=== PATIENT | male | born 1935 | race Caucasian/White ===

== ENCOUNTER 2018-07-22 10:10 | Emergency (ER) | payer MEDICARE ==
[~2018-07-22] VITALS: Ht 177.8 cm; Wt 75.7 kg
[~2018-07-22 10:10] MED LIST: DIAZ10TA PO; SILO8CAP2 PO; TADA5TAB2 PO; VALS160T2 PO; ZOLP12.52 PO
[2018-07-22] MEDS ORDERED: ROSU5TAB PO (10:34)
[2018-07-22] MEDS ORDERED: MAGN400C PO (10:34)
[2018-07-22] MEDS ORDERED: AMLO2.5T4 PO (10:34)
[2018-07-22] MEDS ORDERED: CELE100C PO (10:37)
--- NOTE | 2018-07-22 10:40 | NUR ---
Dr Manning at the bedside for MSE.
[2018-07-22 10:58] LABS: BASOPHILS # (AUTO) 0.1 K/uL (0.0-8.0); BASOPHILS % (AUTO) 0.6 % (0.0-2.0); EOSINOPHILS # (AUTO) 0.1 K/uL (0.0-0.7); EOSINOPHILS % (AUTO) 1.1 % (0.0-7.0); HEMATOCRIT 44.7 % (36.7-47.1); HEMOGLOBIN 15.2 g/dL (12.5-16.3); LYMPHOCYTES # (AUTO) 0.9 K/uL (20.0-40.0); LYMPHOCYTES % (AUTO) 8.7 % (20.5-51.5); MEAN CORPUSCULAR HEMOGLOBIN 31.9 uug (23.8-33.4); MEAN CORPUSCULAR HGB CONC 34 g/dL (32.5-36.3); MEAN CORPUSCULAR VOLUME 93.9 fL (73.0-96.2); MONOCYTES % (AUTO) 9.7 % (0.0-11.0); NEUTROPHILS # (AUTO) 7.9 K/uL (1.8-8.9); NEUTROPHILS % (AUTO) 79.9 % (38.5-71.5); PLATELET COUNT (AUTO) 204 K/uL (152-348); RED BLOOD CELL COUNT(AUTO) 4.76 MIL/uL (4.06-5.63); WHITE BLOOD COUNT (AUTO) 9.9 K/uL (3.6-10.2)
[2018-07-22] MEDS ORDERED: predniSONE 10 MG TABLET ONE (10:59)
[2018-07-22] MEDS ORDERED: predniSONE 50 MG TABLET ONE ×2 (10:59→11:49)
[2018-07-22] MEDS ORDERED: predniSONE 10 MG TABLET PO ONE (11:00)
[2018-07-22] MEDS ORDERED: IPRATROPIUM BROMIDE 0.5 MG/2.5 ML NEBU NEB ONE (11:00)
[2018-07-22] MEDS ORDERED: ALBUTEROL SULFATE 2.5 MG/3 ML NEBU NEB ONE (11:00)
[2018-07-22] MEDS ORDERED: ALBUTEROL SULFATE 2.5 MG/3 ML NEBU ONE (11:03)
[2018-07-22] MEDS ORDERED: IPRATROPIUM BROMIDE 0.5 MG/2.5 ML NEBU ONE (11:03)
[2018-07-22 11:08] LABS: CARBON DIOXIDE 30 mmol/L (21-32); CHLORIDE 102 mmol/L (98-107); GLUCOSE 120 mg/dL (74-106); POTASSIUM 4.1 mmol/L (3.5-5.1); UREA NITROGEN, BLOOD 16 mg/dL (7-18)
[2018-07-22] MEDS ORDERED: IRBE150T28 PO (11:08)
[2018-07-22 11:27] LABS: ALANINE AMINOTRANSFERASE 22 U/L (16-63); ALKALINE PHOSPHATASE 54 U/L (50-136); ASPARTATE AMINOTRANSFERASE 19 U/L (15-37); BILIRUBIN,DIRECT 0.1 mg/dL (0.0-0.2); BILIRUBIN,TOTAL 0.5 mg/dL (0.2-1.0); TOTAL PROTEIN, SERUM 7.1 g/dL (6.4-8.2)
[2018-07-22] MEDS ORDERED: AZITHROMYCIN 250 MG TABLET PO ONE (11:45)
[2018-07-22] MEDS ORDERED: predniSONE 50 MG TABLET PO ONE (11:45)
[2018-07-22] MEDS ORDERED: AZITHROMYCIN 250 MG TABLET ONE (11:49)
--- NOTE | 2018-07-22 11:58 | NUR ---
PT VERBALIZED FEELING BETTER AFTER BREATHING TX - DISCHARGE INSTRUCTIONS GIVEN , PRESCRIPTION EXPLAINED .
[2018-07-22 12:00] VITALS: BP 140/89
--- NOTE | 2018-07-22 12:01 | NUR ---
Patient discharged to home in stable conditon. Written and verbal after care instructions given. Patient verbalizes understanding of instructions.
== END 2018-07-22 12:01 | disposition home or self-care (01) ==
LOC: ER 10:10
DX: J18.9 Pneumonia, unspecified organism (principal); I10 Essential (primary) hypertension; E78.5 Hyperlipidemia, unspecified; Z88.8 Allergy status to other drugs, medicaments and biological substances; Z79.899 Other long term (current) drug therapy
CPT/HCPCS: 36415; 71045; 80048; 80076; 83880; 84484; 85025; 93005; 94640; 99284; J7512 ×2; 70030-TC; A4663; J3590; Q0144

== ENCOUNTER 2018-07-26 07:23 | Emergency (ER) | payer MEDICARE ==
[~2018-07-26] VITALS: Ht 177.8 cm; Wt 76.2 kg
[~2018-07-26 07:23] MED LIST changes: +AMLO2.5T4 PO; +CELE100C PO; +IRBE150T28 PO; +MAGN400C PO; +ROSU5TAB PO; -SILO8CAP2 PO; -VALS160T2 PO
--- NOTE | 2018-07-26 08:07 | NUR ---
Patient discharged to home in stable conditon. Written and verbal after care instructions given. Patient verbalizes understanding of instructions.
== END 2018-07-26 08:00 | disposition home or self-care (01) ==
LOC: ER 07:23
DX: J40 Bronchitis, not specified as acute or chronic (principal); I10 Essential (primary) hypertension; E78.5 Hyperlipidemia, unspecified; Z88.8 Allergy status to other drugs, medicaments and biological substances; Z79.899 Other long term (current) drug therapy
CPT/HCPCS: A4663

== ENCOUNTER 2019-07-24 08:11 | Emergency (ER) | payer MEDICARE ==
[~2019-07-24] VITALS: Ht 177.8 cm; Wt 76.2 kg
--- NOTE | 2019-07-24 08:23 | NUR ---
PT AMBULATORY W/ STABLE GAIT STATES MECHANICAL TRIP AND FALL, FORWARD AND SCRAPED R KNEE NOTED GAUZE 4X4 R KNEE WRAPPED IN COBAIN AOX3, AIRWAY CLEAR DENIES FEVERS/CHILLS/NVD DENIES SOB DENIES LOC RA ABLE TO DO ROM MONITORED ACCORDINGLY
[2019-07-24] MEDS ORDERED: NEOMY/BACITRA/POLYMYXIN B OINT UD PACKET TP ONE ×2 (08:38→08:45)
[2019-07-24] MEDS ORDERED: TDAP DIPH,PERTUSS,TET VAC/PF 0.5 ML DISP.SYRIN IM ONE ×2 (08:39→08:45)
--- NOTE | 2019-07-24 09:00 | NUR ---
PT ABLE TO TOLERATE WOUND CARE
--- NOTE | 2019-07-24 09:09 | NUR ---
Patient discharged to home in stable conditon. Written and verbal after care instructions given. Patient verbalizes understanding of instructions. AMBULATORY W/ STABLE GAIT ALL BELONGINGS W/ PT
[2019-07-24 09:13] VITALS: BP 132/87
== END 2019-07-24 09:14 | disposition home or self-care (01) ==
LOC: ER 08:11
DX: S81.011A Laceration without foreign body, right knee, initial encounter (principal); I10 Essential (primary) hypertension; E78.5 Hyperlipidemia, unspecified; Z88.8 Allergy status to other drugs, medicaments and biological substances; Z79.899 Other long term (current) drug therapy; W10.9XXA Fall (on) (from) unspecified stairs and steps, initial encounter; Y93.89 Activity, other specified; Y92.89 Other specified places as the place of occurrence of the external cause; Y99.8 Other external cause status
CPT/HCPCS: 90715; A4217; A4663

== ENCOUNTER 2019-07-25 07:08 | Emergency (ER) | payer MEDICARE ==
[~2019-07-25] VITALS: Ht 177.8 cm; Wt 76.2 kg
[2019-07-25] MEDS ORDERED: NEOMY/BACITRA/POLYMYXIN B OINT UD PACKET TP ONE ×2 (07:30→07:32)
--- NOTE | 2019-07-25 07:55 | NUR ---
Dressing change on Lt latheral pedro and Rt knee abrasion per MD order.
[2019-07-25 07:56] VITALS: BP 138/87
--- NOTE | 2019-07-25 08:10 | NUR ---
Patient discharged to home in stable conditon. Written and verbal after care instructions given. Patient verbalizes understanding of instructions.
== END 2019-07-25 08:11 | disposition home or self-care (01) ==
LOC: ER 07:08
DX: S81.011A Laceration without foreign body, right knee, initial encounter (principal); I10 Essential (primary) hypertension; E78.5 Hyperlipidemia, unspecified; Z88.8 Allergy status to other drugs, medicaments and biological substances; Z79.899 Other long term (current) drug therapy; W20.8XXA Other cause of strike by thrown, projected or falling object, initial encounter; Y93.89 Activity, other specified; Y92.89 Other specified places as the place of occurrence of the external cause; Y99.8 Other external cause status
CPT/HCPCS: A4217; A4663

== ENCOUNTER 2019-07-26 07:20 | Emergency (ER) | payer MEDICARE ==
[~2019-07-26] VITALS: Ht 177.8 cm; Wt 76.2 kg
[2019-07-26] MEDS ORDERED: NEOMY/BACITRA/POLYMYXIN B OINT UD PACKET TP ONE ×2 (07:47→08:00)
--- NOTE | 2019-07-26 07:49 | NUR ---
Skin care for abrasions was given to patient extensively by MD. Patient verbalized understanding & compliance to instructions.
--- NOTE | 2019-07-26 07:53 | NUR ---
PT WAS EVALUATED BY DR TALLEY. PT WAS D/C'd TO HOME. D/C INSTRUCTIONS GIVEN TO THE PT.
== END 2019-07-26 07:56 | disposition home or self-care (01) ==
LOC: ER 07:20
DX: S81.811D Laceration without foreign body, right lower leg, subsequent encounter (principal); I10 Essential (primary) hypertension; E78.5 Hyperlipidemia, unspecified; Z88.8 Allergy status to other drugs, medicaments and biological substances; Z79.899 Other long term (current) drug therapy; X58.XXXD Exposure to other specified factors, subsequent encounter
CPT/HCPCS: A4663

== ENCOUNTER 2019-07-30 07:26 | Emergency (ER) | payer MEDICARE ==
[~2019-07-30] VITALS: Ht 177.8 cm; Wt 76.2 kg
--- NOTE | 2019-07-30 07:30 | NUR ---
ERMD AT BEDSIDE FOR HX AND PHYSICAL
--- NOTE | 2019-07-30 07:38 | NUR ---
WOUND CARE AND DRESSING DONE TO R KNEE. NO S/S OF INFECTION PT ABLE TO TOLERATE PROCEDURE
--- NOTE | 2019-07-30 07:43 | NUR ---
Patient discharged to home in stable conditon. Written and verbal after care instructions given. Patient verbalizes understanding of instructions. AMBULATORY W/ STABLE GAIT ALL BELONGINGS W/ PT
[2019-07-30 07:45] VITALS: BP 137/74
== END 2019-07-30 07:46 | disposition home or self-care (01) ==
LOC: ER 07:26
DX: Z48.00 Encounter for change or removal of nonsurgical wound dressing (principal); I10 Essential (primary) hypertension; E78.5 Hyperlipidemia, unspecified; Z88.6 Allergy status to analgesic agent; Z79.899 Other long term (current) drug therapy
CPT/HCPCS: A4663

== ENCOUNTER 2020-01-18 10:30 | Emergency (ER) | payer MEDICARE ==
[~2020-01-18] VITALS: Ht 177.8 cm; Wt 76.2 kg
--- NOTE | 2020-01-18 10:44 | NUR ---
Dr. Christie at the bedside for MSE.
[2020-01-18] MEDS ORDERED: AMOXICILLIN-CLAVUL 875-125MG TABLET PO ONE (11:00)
[2020-01-18] MEDS ORDERED: LET TOPICAL SOLUTION 8 ML UDC ONE (11:28)
[2020-01-18] MEDS ORDERED: TDAP DIPH,PERTUSS,TET VAC/PF 0.5 ML DISP.SYRIN IM ONE ×2 (11:29→11:30)
[2020-01-18] MEDS ORDERED: AMOXICILLIN-CLAVUL 875-125MG TABLET ONE (11:29)
[2020-01-18] MEDS ORDERED: LIDOCAINE HCL 2% 20 ML VIAL TP ONE (11:30)
[2020-01-18] MEDS ORDERED: LET TOPICAL SOLUTION 8 ML UDC TP ONE (11:30)
[2020-01-18] MEDS ORDERED: SODIUM BICARBONATE 4.2 % (NEUT) 5 ML VIAL TP ONE (11:30)
[2020-01-18] MEDS ORDERED: SODIUM BICARBONATE 4.2 % (NEUT) 5 ML VIAL ONE (11:31)
[2020-01-18] MEDS ORDERED: LIDOCAINE HCL 2% 20 ML VIAL ONE (11:31)
[2020-01-18] MEDS ORDERED: NEOMY/BACITRA/POLYMYXIN B OINT UD PACKET TP ONE ×2 (13:19→13:30)
--- NOTE | 2020-01-18 13:55 | NUR ---
Patient discharged to home in stable condition. Written and verbal after care instructions given. Patient verbalizes understanding of instructions. Stressed follow up or return to ER for worsening s/s.
[2020-01-18 18:29] VITALS: BP 119/79
== END 2020-01-18 13:55 | disposition home or self-care (01) ==
LOC: ER 10:30
DX: S61.216A Laceration without foreign body of right little finger without damage to nail, initial encounter (principal); W54.0XXA Bitten by dog, initial encounter; Y93.89 Activity, other specified; Y92.89 Other specified places as the place of occurrence of the external cause; Y99.8 Other external cause status; I10 Essential (primary) hypertension; E78.5 Hyperlipidemia, unspecified; Z85.72 Personal history of non-Hodgkin lymphomas
CPT/HCPCS: 12001; 90471; 90715; 99283; J3490 ×2; A4217; A4663

== ENCOUNTER 2020-01-19 05:17 | Emergency (ER) | payer MEDICARE ==
[~2020-01-19] VITALS: Ht 177.8 cm; Wt 76.2 kg
--- NOTE | 2020-01-19 05:25 | NUR ---
Dr. Ivan at bedside for MSE
--- NOTE | 2020-01-19 05:38 | NUR ---
Patient discharged to home in stable condition. Written and verbal after care instructions given. Patient verbalizes understanding of instructions. Stressed follow up or return to ER for worsening s/s. aa/ox4. able to speak in complet sentences in stable condition respirations even and unlabored RT hand 5th digit wound clean, no s/s of infection, no bleeding ambulatory with steady gait all belongings with pt
[2020-01-19 05:44] VITALS: BP 145/90
== END 2020-01-19 05:40 | disposition home or self-care (01) ==
LOC: ER 05:19
DX: S61.216D Laceration without foreign body of right little finger without damage to nail, subsequent encounter (principal); W54.0XXD Bitten by dog, subsequent encounter; I10 Essential (primary) hypertension; Z85.72 Personal history of non-Hodgkin lymphomas; E78.5 Hyperlipidemia, unspecified
CPT/HCPCS: A4663

== ENCOUNTER 2023-10-13 11:45 | Emergency (ER) | payer MEDICARE ==
[~2023-10-13] VITALS: Ht 177.8 cm; Wt 75.7 kg
[2023-10-13 13:13] VITALS: BP 133/70; TEMP 98; O2SAT 99
== END 2023-10-13 13:15 | disposition home or self-care (01) ==
LOC: ER 11:45
DX: S81.812A Laceration without foreign body, left lower leg, initial encounter (principal); I10 Essential (primary) hypertension; E78.5 Hyperlipidemia, unspecified; Z88.8 Allergy status to other drugs, medicaments and biological substances; Z79.899 Other long term (current) drug therapy; W01.0XXA Fall on same level from slipping, tripping and stumbling without subsequent striking against object, initial encounter; Y93.89 Activity, other specified; Y92.89 Other specified places as the place of occurrence of the external cause; Y99.8 Other external cause status
CPT/HCPCS: A4606; A4663

== ENCOUNTER 2024-03-08 08:54 | Emergency (ER) | payer MEDICARE ==
[~2024-03-08] VITALS: Ht 177.8 cm; Wt 77.1 kg
[2024-03-08 09:15] VITALS: O2SAT 95
[2024-03-08] MEDS ORDERED: BACITRACIN ZINC OINT 15 GM TUBE ONE (09:37)
[2024-03-08] MEDS ORDERED: NEOMY/BACITRA/POLYMYXIN B OINT UD PACKET TP ONE (09:45)
== END 2024-03-08 09:50 | disposition home or self-care (01) ==
LOC: ER 08:54
DX: S51.812A Laceration without foreign body of left forearm, initial encounter (principal); E78.5 Hyperlipidemia, unspecified; Z90.79 Acquired absence of other genital organ(s); Z79.899 Other long term (current) drug therapy; Z88.7 Allergy status to serum and vaccine; Z88.6 Allergy status to analgesic agent
CPT/HCPCS: A4606; A4663

== ENCOUNTER 2024-09-29 23:54 | Emergency (ER) | payer MEDICARE ==
[~2024-09-29] VITALS: Ht 177.8 cm; Wt 77.1 kg
[2024-09-30 01:35] VITALS: BP 143/82; O2SAT 98
== END 2024-09-30 01:36 | disposition home or self-care (01) ==
LOC: ER 09-30 00:15
DX: L03.011 Cellulitis of right finger (principal); E78.5 Hyperlipidemia, unspecified; Z79.899 Other long term (current) drug therapy; Z88.6 Allergy status to analgesic agent; Z88.7 Allergy status to serum and vaccine; Z90.79 Acquired absence of other genital organ(s)
CPT/HCPCS: A4606; A4663